=== PATIENT | female | born 2000 | race Caucasian/White ===

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

== ENCOUNTER → 2022-07-03 | Outpatient (CLI) | payer BC ==
[2022-07-03 22:49] LABS: Appearance,Urine Cloudy (Clear); Bilirubin,Urine Negative (Negative); Blood,Urine Large (Negative); Color,Urine Yellow (Yellow); Ketones,Urine Negative (Negative); Nitrite,Urine Negative (Negative); Specific Gravity,Urine 1.007 (1.001-1.030); Urobilinogen,Urine 0.2 (0.2,1.0)
[2022-07-03 23:03] LABS: Bacteria,Urine None Seen /HPF (None Seen)
== END | disposition home or self-care (01) ==
LOC: LABMAIN 14:45
PROVIDERS: ATTEND Emergency Medicine
DX: N39.0 Urinary tract infection, site not specified (principal)
CPT/HCPCS: 81001; 87086

== ENCOUNTER → 2022-07-05 | Outpatient (CLI) | payer BC ==
--- NOTE | 2022-07-05 19:20 | CT ---
EXAMINATION TYPE: CT abdomen pelvis wo con DATE OF EXAM: 07/05/2022 COMPARISON: None HISTORY: FLANK PAIN AND HEMATURIA CT DLP: 312.2 mGycm Automated exposure control for dose reduction was used. Images obtained from the diaphragm to the floor of the pelvis with no contrast. The lung bases are clear. No pleural effusion. Heart size is normal. No pericardial effusion. Liver s pleen and stomach appear intact. The bile ducts are not dilated. There is no pancreatic mass. Gallbla dder is contracted. There is no adrenal mass. Kidneys of normal size. No hydronephrosis. Ureters are not dilated. There i s 3 mm calculus posterior right kidney. No retroperitoneal adenopathy. The bladder distends smoothly. Uterus is anteverted. No pelvic mass. No free fluid in the pelvis. No inguinal hernia. Appendix not well seen. No sign of thickened appendix. The lumbar vertebra have normal alignment. Disc spaces are normal. No compression fracture. Posterior elements are intact. There is some retained fecal material in the large bowel. Bony pelvis is intact . The hip joints are intact. IMPRESSION: Mild constipation. Appendix not seen. No sign of thickened appendix. Nonobstructing right renal calcu kendall.
== END | disposition home or self-care (01) ==
LOC: LABMAIN 18:38
PROVIDERS: ATTEND Emergency Medicine
DX: N20.0 Calculus of kidney (principal); K59.00 Constipation, unspecified
CPT/HCPCS: 74176

== ENCOUNTER → 2022-07-09 | Outpatient (CLI) | payer BC ==
[2022-07-09 12:44] LABS: ALT 17 U/L (4-34); AST 23 U/L (14-36); African American GFR (CKD) >90 (>60 ml/min/1.73 sqM); Albumin 4.6 g/dL (3.5-5.0); Albumin/Globulin Ratio 1.8; Alkaline Phosphatase 55 U/L (38-126); Anion Gap 6 mmol/L; Blood Urea Nitrogen 12 mg/dL (7-17); Calcium 9.5 mg/dL (8.4-10.2); Carbon Dioxide 29 mmol/L (22-30); Chloride 106 mmol/L (98-107); Globulin 2.6 g/dL; Glucose 90 mg/dL (74-99); Non-African American GFR(CKD) >90 (>60 ml/min/1.73 sqM); Sodium 141 mmol/L (137-145); Total Bilirubin 0.5 mg/dL (0.2-1.3); Total Protein 7.2 g/dL (6.3-8.2); Uric Acid 4.3 mg/dL (3.7-7.4)
== END | disposition home or self-care (01) ==
LOC: LABMAIN 12:13
PROVIDERS: ATTEND Emergency Medicine
DX: N20.0 Calculus of kidney (principal)
CPT/HCPCS: 80053; 83735; 84550